=== PATIENT | male | born 1980 | race Hispanic/Latino ===

== ENCOUNTER 2020-07-10 10:42 | Emergency (ER) | payer BC, SELFPAY ==
--- NOTE | ~2020-07-10 | XR_ITS ---
EXAMINATION: XR chest 1V portable 07/10/2020 11:41 INDICATION: Cough. Covid Positive. PROCEDURE: AP portable chest COMPARISON: No prior studies for comparison. FINDINGS: The lungs are clear. The cardiomediastinal silhouette is within normal limits. There are no pleural effusions. There is no pneumothorax suspected. IMPRESSION: 1: NO ACUTE CARDIOPULMONARY DISEASE. Reviewed, dictated and finalized at location B. HING MACHINE OPERATOR
[2020-07-10 10:53] VITALS: BP 142/107; PULSE 96; RESP 20; TEMP 37.2; O2SAT 95
--- NOTE | 2020-07-10 11:33 | ED.URI ---
HPI - URI/Sore Throat General Chief Complaint: Upper Respiratory Infection Stated Complaint: covid +, doesn't know what to do Time Seen by Provider: 07/10/20 11:01 Source: patient Mode of arrival: ambulatory Limitations: no limitations History of Present Illness HPI Narrative: This is a 39-year-old male that presents emergency department after a positive Covid test. Reports he was told to come to the ED by his primary doctor. Reports his father is currently very sick with coronavirus which made him nervous. Reports he has had fever, cough, congestion, and rhinorrhea. Denies chest pain, shortness of breath, or lower extremity edema. Related Data Allergies Allergy/AdvReac Type Severity Reaction Status Date / Time No Known Allergies Allergy Unknown Unverified 10/23/15 00:28 Review of Systems Review of Systems: Narrative: CONSTITUTIONAL: Reports fever, chills ENT: Reports rhinorrhea, congestion CARDIOVASCULAR: Denies chest pain, or edema. RESPIRATORY: Reports cough. Denies dyspnea. All systems reviewed & are unremarkable except as noted in HPI and below PMFSH Past Medical History Medical History (Updated 07/10/20 @ 11:49 by Yodit Sandoval PA-C) No active medical problems Social History Social History (Updated 07/10/20 @ 11:38 by Yodit Sandoval PA-C) Smoking status: Current some day smoker Exam Narrative: Exam Narrative: GENERAL: Well-appearing, obese, and in no acute distress. HEAD: Normocephalic, atraumatic. EYES: EOMI. ENT: Nares clear, no rhinorrhea or epistaxis. Mucous membranes moist. Oropharynx without tonsillar hypertrophy exudate or other lesions. Bilateral TMs pearly smith non-bulging NECK: Supple. No adenopathy or masses. CHEST: Clear to auscultation. No respiratory distress. No wheezes rales or rhonchi HEART: Regular rate and rhythm. No murmur heard. Normal peripheral pulses. EXTREMITIES: Normal range of motion. No edema. SKIN: Warm, dry, no rash. NEURO: No focal deficits. Alert and oriented x3. PSYCH: Normal mood and affect Course Vital Signs Vital signs: Vital Signs Temperature 98.9 F 07/10/20 10:53 Pulse Rate 96 07/10/20 10:53 Respiratory Rate 20 07/10/20 10:53 Blood Pressure 142/107 H 07/10/20 10:53 Pulse Oximetry 95 07/10/20 10:53 Temperature 98.9 F 07/10/20 10:53 Pulse Rate 96 07/10/20 10:53 Respiratory Rate 20 07/10/20 10:53 Blood Pressure 142/107 H 07/10/20 10:53 Pulse Oximetry 95 07/10/20 10:53 MDM - URI/Sore Throat MDM Narrative Medical decision making narrative: Patient presents to the emergency department for positive Covid test. He is afebrile and nontoxic-appearing. Oxygen saturation has remained normal on room air. Denies any chest pain or shortness of breath. Chest x-ray is clear. Patient instructed on continued symptomatic care of viral infection. He is to follow-up with his primary care doctor. He was given warnings to return to the ER Imaging Data Radiologist's impression: ITS Impressions Chest X-Ray 07/10/20 11:42 IMPRESSION: 1: NO ACUTE CARDIOPULMONARY DISEASE. Critical Care Time Critical Care Time Critical Care Time: No Discharge Plan Discharge Clinical Impression: 2019 novel coronavirus detected Patient Disposition: Home, Self-Care Condition: Stable Instructions: COVID-19 (Coronavirus Disease 2019) (ED) Additional Instructions: Return to the emergency department for worsening symptoms, or any other concerns Remain well-hydrated, get plenty of rest. Take Tylenol or Motrin [id number] for pain as needed. Flonase for nasal congestion. Zyrtec for runny nose. Lozenges or Chloraseptic spray for sore throat. Albuterol as needed for shortness of breath. It is important that you remain self isolated Follow up with your primary care doctor Prescriptions: New albuterol sulfate 90 mcg/actuation aerosol powdr breath activated 2 inh inhalation Q4-6H PRN (Reason: shortness of ulices
[2020-07-10 11:45] VITALS: BP 142/96
[2020-07-10 12:25] VITALS: BP 143/92; PULSE 95; RESP 20; O2SAT 92
== END 2020-07-10 12:25 | disposition home or self-care (01) ==
PROVIDERS: Emergency Provider Emergency Medicine
DX: U07.1 COVID-19 (principal); F17.200 Nicotine dependence, unspecified, uncomplicated
CPT/HCPCS: 71045; 99283

== ENCOUNTER 2020-07-12 15:56 | Emergency (ER) | payer BC, SELFPAY ==
[2020-07-12] VITALS (16 sets, daily range): BP systolic 123–147; BP diastolic 79–95; PULSE 92–112; RESP 18–29; TEMP 37.8–38.2; O2SAT 94–97
--- NOTE | ~2020-07-12 | CT_ITS ---
EXAMINATION: CTA chest PE protocol DATE: 07/12/2020 20:23 INDICATION: Soreness of breath. Elevated d-dimer. TECHNIQUE: Computed tomography (CT) pulmonary angiogram of the chest was performed with 100 mL Omnipa que-350 intravenous contrast. Additional 3D reconstructions utilizing coronal maximum intensity proje ction (MIP) were performed. Automated exposure control and iterative reconstruction technique were em ployed. The dose-length product was 824.66 mGy-cm. COMPARISON: None FINDINGS: Excellent contrast opacification of the pulmonary arteries. There is mild streak artifact from dense contrast in the superior vena cava and right atrium. Mild scattered respiratory motion artifact which does not significantly limit evaluation. No pulmonary embolism. Multiple bilateral patchy groundglas s opacities throughout both lungs suspicious for COVID pneumonia. There are some linear discoid atele ctasis in the bilateral lower lobes and lingula. No septal line thickening to suggest pulmonary edema . No pleural effusion. Heart size is normal. No pericardial effusion. Thoracic aorta is normal in micah iber with no dissection. Bilateral hilar and mediastinal lymphadenopathy which is likely reactive. Vi sualized upper abdomen is unremarkable. Chronic T12 compression fracture with 20% anterior vertebral body height loss. IMPRESSION: 1. No pulmonary embolism. 2. Multiple patchy bilateral groundglass opacities suspicious for COVID pneumonia. Differential would include pulmonary edema, hypersensitivity pneumonitis and eosinophilic pneumonia. 3. Likely reactive mild mediastinal and bilateral hilar lymphadenopathy. Reviewed, dictated and finalized at location A. ICE TECH IMPRESSION: 1. No pulmonary embolism. 2. Multiple patchy bilateral groundglass opacities suspicious for COVID pneumon ia. Differential would include pulmonary edema, hypersensitivity pneumonitis an d eosinophilic pneumonia. 3. Likely reactive mild mediastinal and bilateral hilar lymphadenopathy.
--- NOTE | ~2020-07-12 | XR_ITS ---
EXAMINATION: XR chest 1V portable DATE: 07/12/2020 16:48 INDICATION: COVID positive. Cough and shortness of breath. TECHNIQUE: frontal view of the chest was obtained. COMPARISON: Chest radiograph dated 07/10/2020 FINDINGS: Bandlike opacity left lower lung zone which would favor atelectasis over pneumonia. No pulmonary oli a, pleural effusion or pneumothorax. The cardiomediastinal silhouette is normal. IMPRESSION: 1. Bandlike opacity left lower lung zone and would favor atelectasis over pneumonia. Reviewed, dictated and finalized at location A. 3D ARTIST IMPRESSION: 1. Bandlike opacity left lower lung zone and would favor atelectasis over pneum onia.
--- NOTE | 2020-07-12 16:31 | ED.GENADULT ---
HPI - General Adult General Chief complaint: Unspecified Stated complaint: COVID + wanting to make sure i am not SOB Time Seen by Provider: 07/12/20 16:00 Source: patient Mode of arrival: ambulatory Limitations: no limitations History of Present Illness HPI narrative: Patient 39-year-old male complaining of cough, fever, body aches and difficult day when he takes a deep breath but he is not short of breath, started approximately 4 days ago was diagnosed with Covid 3 days ago. Patient denies any chest pain abdominal pain, nausea, vomiting, diarrhea or rash. Related Data Allergies Allergy/AdvReac Type Severity Reaction Status Date / Time No Known Allergies Allergy Unknown Verified 07/12/20 16:05 Review of Systems Review of Systems: All systems reviewed & are unremarkable except as noted in HPI and below Constitutional: Constitutional: Denies body ache(s), Denies excessive sweating, Denies headache(s), Denies lethargy, Denies weakness and Denies weight loss Eyes: Eyes: Denies blurry vision, Denies change in vision and Denies loss of vision ENT: Denies dizziness, Denies ear discharge, Denies headache(s), Denies lip swelling, Denies epistaxis, Denies nasal congestion, Denies neck pain, Denies throat swelling and Denies tongue swelling Cardiovascular: Cardiovascular: Denies chest pain, Denies chest pain at rest, Denies chest pain with activity, Denies diaphoresis, Denies rapid heart rate, Denies edema, Denies irregular heart rhythm, Denies lightheadedness, Denies palpitations, Denies dyspnea and Denies dyspnea on exertion Respiratory: Respiratory: Denies chest congestion, Denies hemoptysis, Denies dyspnea and Denies dyspnea on exertion Gastrointestinal: Gastrointestinal: Denies abdominal pain, Denies melena, Denies hematochezia, Denies diarrhea, Denies nausea, Denies vomiting and Denies hematemesis Musculoskeletal: Musculoskeletal: Denies abnormal gait, Denies deformity, Denies joint swelling, Denies limited range of motion, Denies neck pain and Denies numbness Neurologic: Denies Abnormal speech present, Denies abnormal gait, Denies confusion, Denies dizziness, Denies headache(s), Denies focal weakness, Denies loss of vision, Denies numbness, Denies Other visual disturbances, Denies Sensory deficit (Neuro) and Denies weakness Psychiatric: Psychiatric: Denies confusion, Denies depression, Denies auditory hallucinations, Denies homicidal ideation and Denies suicidal ideation Endocrine: Endocrine: Denies cold intolerance, Denies excessive sweating, Denies fatigue, Denies heat intolerance and Denies palpitations Hematologic/Lymphatic: Hematologic/Lymphatic: Denies easy bleeding and Denies easy bruising Allergic/Immunologic: Allergic/Immunologic: Denies lip swelling, Denies throat swelling and Denies tongue swelling [facility] Past Medical History Medical History (Updated 07/12/20 @ 21:05 by Henry Campuzano MD) No active medical problems Social History Social History (Updated 07/10/20 @ 11:38 by ZEE CashC) Smoking status: Current some day smoker Exam Const: General: cooperative, healthy appearing, comfortable, no acute distress, well developed, alert and awake; No confusion Orientation/consciousness: oriented to person, oriented to place, oriented to time, patient oriented x3 and No confusion Limitations: no limitations HENMT: Head: normal to inspection, normocephalic and atraumatic Ears: hearing grossly normal bilaterally, TM normal on the right and TM normal on the left General nose exam: Normal external nose present, Normal nares present and No nasal discharge present Face and sinus: normal facial exam Mouth: Yes Normal oral and palatal mucosa present, Yes lip normal, Yes tongue normal and Yes oropharynx normal Throat: posterior oropharynx normal, tonsils normal and uvula midline Eyes: General: appearance normal, both eyes and all related structures Pupils: Equal, round and reactive pupils present EOM: EOMs in
[2020-07-12] MEDS: ACETAMINOPHEN 325 MG TABLET 650 MG PO (16:46)
[2020-07-12 17:12] LABS: Basophils Percent Auto 0.2 % (0.2-1.2); Hematocrit 46.3 % (42.0-52.0); Hemoglobin 15.8 g/dL (14.0-18.0); Immature Granulocyte Absolute 0.02 K/mm3 (0.00-0.031); Immature Granulocyte Percent A 0.3 % (0-0.5); Lymphocytes Absolute Auto 1.38 K/mm3 (0.9-3.2); Lymphocytes Percent Auto 21.1 % (18.3-44.2); Mean Corpuscular HGB Conc 34.1 g/dl (32-36); Mean Corpuscular Hemoglobin 30.5 pg (26-34); Mean Corpuscular Volume 89.4 fl (80-100); Mean Platelet Volume 9.9 fl (7.4-10.4); Monocytes Absolute Auto 0.2 K/mm3 (0.1-0.6); Monocytes Percent Auto 2.5 % (2.6-8.5); Neutrophils Percent Auto 75.9 % (45.5-73.1); Platelet Count Result 169 k/mm3 (150-375); Red Blood Count 5.18 M/mm3 (4.6-6.20); Red Cell Distribution Width 13.1 % (11.5-14.5); White Blood Count 6.5 K/mm3 (4.5-10.0)
[2020-07-12 17:23] LABS: Lactic Acid Reflex 0.7 mmol/L (0.7-2.1)
[2020-07-12 17:24] LABS: Alanine Aminotransferase 187 U/L (4-50); Albumin Level 3.9 g/dL (3.5-5.1); Alkaline Phosphatase 74 U/L (38-126); Anion Gap 6 mmol/L (8-16); Aspartate Amino Transferase 172 U/L (17-59); Bilirubin,Total 0.4 mg/dL (0.2-1.3); Blood Urea Nitrogen 5 mg/dL (9-20); Calcium 8.3 mg/dL (8.4-10.2); Carbon Dioxide 27 mmol/L (22-30); Chloride 100 mmol/L (98-107); Estimated CRCL calculation 150 ml/min; Estimated Glomerular Filt Rate > 60; Glucose 126 mg/dL (75-110); Potassium 3.8 mmol/L (3.4-5.0); Sodium 133 mmol/L (137-145)
[2020-07-12 17:31] LABS: Prothrombin Time 13.7 Seconds (11.1-14.7)
[2020-07-12 17:32] LABS: Partial Thromboplastin Time 39.8 SECONDS (22.3-36.8)
[2020-07-12 17:34] LABS: D Dimer 0.56 ug/mL (<0.48)
== END 2020-07-12 22:01 | disposition home or self-care (01) ==
PROVIDERS: Emergency Provider Emergency Medicine
DX: U07.1 COVID-19 (principal); J12.89 Other viral pneumonia; F17.200 Nicotine dependence, unspecified, uncomplicated
CPT/HCPCS: 36415; 71045; 71275; 80053; 83605; 85025; 85380; 85610; 85730; 87040; 99284; A9270; Q9967

== ENCOUNTER 2020-07-15 12:19 | Inpatient (IN) | payer BC, SELFPAY ==
[2020-07-15] VITALS (52 sets, daily range): BP systolic 110–149; BP diastolic 64–94; PULSE 80–112; RESP 0–48; TEMP 36.4–38.3; O2SAT 85–99; BMI 42.4
--- NOTE | ~2020-07-15 | CT_ITS ---
EXAMINATION:CT chest wo con DATE: 07/15/2020 13:44 INDICATION: Shortness of breath. TECHNIQUE: Computed tomography (CT) of the chest was performed without intravenous contrast. Automate d exposure control and iterative reconstruction technique were employed. The dose-length product (DLP ) was 523.83 mGy-cm. COMPARISON: Chest CT 07/12/2020 FINDINGS: There are groundglass opacities in all lobes. No pleural effusion. The heart size is normal . No pericardial effusion. A calcified mediastinal lymph node is consistent with old granulomatous di sease. There is mild mediastinal lymphadenopathy, likely reactive. There is mild thoracic spondylosis . There is mild chronic anterior wedging of T11 and T12 vertebral bodies. IMPRESSION: 1. Worsened diffuse lung disease, consistent with COVID-19 pneumonia. Reviewed, dictated and finalized at location B. OLOGY RESEARCH ASSISTANT
--- NOTE | ~2020-07-15 | XR_ITS ---
EXAMINATION: XR chest 1V portable DATE: 07/19/2020 05:59 INDICATION: COVID TECHNIQUE: frontal view of the chest was obtained. COMPARISON: Chest radiograph dated 07/17/2020 FINDINGS: There is been some improvement in the bilateral patchy and streaky airspace opacities in the bilatera l mid and lower lung zones. No pleural effusion or pneumothorax. The cardiomediastinal silhouette is normal. IMPRESSION: 1. Slight improvement in bilateral patchy airspace opacities consistent with improving pneumonia. Reviewed, dictated and finalized at location A. TS PSYCHOLOGIST IMPRESSION: 1. Slight improvement in bilateral patchy airspace opacities consistent with im proving pneumonia.
--- NOTE | ~2020-07-15 | XR_ITS ---
EXAMINATION: XR chest 1V portable DATE: 07/17/2020 05:42 INDICATION: COVID TECHNIQUE: frontal view of the chest was obtained. COMPARISON: Chest radiograph dated 07/12/[address] dated 07/15/2020 FINDINGS: Increase in bilateral patchy airspace opacities throughout bilateral mid and lower lung zones. No ple ural effusion or pneumothorax. The cardiomediastinal silhouette is normal. IMPRESSION: 1. Increasing bilateral patchy airspace opacities consistent with worsening pneumonia. Reviewed, dictated and finalized at location A. RVENTION ANALYST IMPRESSION: 1. Increasing bilateral patchy airspace opacities consistent with worsening pne umonia.
--- NOTE | 2020-07-15 12:22 | ECG_ITS ---
Measurements Intervals [place] Rate: 102 P: 3 ND: 145 QRS: 227 QRSD: 130 T: 17 QT: 354 QTc: 462 Interpretive Statements ATRIAL SENSE- ELECTRONIC VENTRICULAR PACEMAKER UNDERLYING SINUS TACHYCARDIA NO FURTHER INTERPRETATION IS POSSIBLE BORDERLINE ECG Electronically Signed On 07-15-2020 12:32:16 DIRECTOR AGENCY & STRATEGIC PARTNERSHIPS by Daniel Davis D.O.
--- NOTE | 2020-07-15 12:38 | ED.SOB ---
HPI - SOB/Dyspnea General Chief Complaint: Shortness of Breath/Dyspnea Stated Complaint: cough, losing my breath Time Seen by Provider: 07/15/20 12:23 Source: patient Mode of arrival: ambulatory Limitations: no limitations History of Present Illness HPI Narrative: Patient is a 39-year-old male complaining of shortness of breath that started 1 week ago and was seen here few days ago, had labs and a CTA of his chest that showed positive for Covid pneumonia. I saw and examined the patient when he was here few days ago his oxygen sat was in the 96-98 percentile on room air, was discharged home on precautions and was advised that if his oxygen goes down and becomes more short of breath return to the emergency room. Patient states that his oxygen was low and he is even more short of breath that is why he came in. Patient also complaining of fever. Patient denies any chest pain abdominal pain, nausea, vomiting, diarrhea or rash. Related Data Allergies Allergy/AdvReac Type Severity Reaction Status Date / Time No Known Allergies Allergy Unknown Verified 07/12/20 16:05 Review of Systems Review of Systems: All systems reviewed & are unremarkable except as noted in HPI and below Constitutional: Constitutional: Denies body ache(s), Denies excessive sweating, Denies headache(s), Denies lethargy, Denies weakness and Denies weight loss Eyes: Eyes: Denies blurry vision, Denies change in vision and Denies loss of vision ENT: Denies dizziness, Denies ear discharge, Denies headache(s), Denies lip swelling, Denies epistaxis, Denies nasal congestion, Denies neck pain, Denies throat swelling and Denies tongue swelling Cardiovascular: Cardiovascular: Denies chest pain, Denies chest pain at rest, Denies chest pain with activity, Denies diaphoresis, Denies rapid heart rate, Denies edema, Denies irregular heart rhythm, Denies lightheadedness and Denies palpitations Gastrointestinal: Gastrointestinal: Denies abdominal pain, Denies melena, Denies hematochezia, Denies diarrhea, Denies nausea, Denies vomiting and Denies hematemesis Musculoskeletal: Musculoskeletal: Denies abnormal gait, Denies deformity, Denies joint swelling, Denies limited range of motion, Denies neck pain and Denies numbness Neurologic: Denies Abnormal speech present, Denies abnormal gait, Denies confusion, Denies dizziness, Denies headache(s), Denies focal weakness, Denies loss of vision, Denies numbness, Denies Other visual disturbances, Denies Sensory deficit (Neuro) and Denies weakness Psychiatric: Psychiatric: Denies confusion, Denies depression, Denies auditory hallucinations, Denies homicidal ideation and Denies suicidal ideation Endocrine: Endocrine: Denies cold intolerance, Denies excessive sweating, Denies fatigue, Denies heat intolerance and Denies palpitations Hematologic/Lymphatic: Hematologic/Lymphatic: Denies easy bleeding and Denies easy bruising Allergic/Immunologic: Allergic/Immunologic: Denies lip swelling, Denies throat swelling and Denies tongue swelling PMFSH Past Medical History Medical History (Updated 07/15/20 @ 15:41 by Henry Campuzano MD) No active medical problems Social History Social History (Updated 07/10/20 @ 11:38 by Yodit Sandoval PA-C) Smoking status: Current some day smoker Gender identity (if verbalized by the patient): Male Exam Const: General: cooperative, healthy appearing, comfortable, well developed, alert and awake; No confusion Orientation/consciousness: oriented to person, oriented to place, oriented to time, patient oriented x3 and No confusion Limitations: no limitations HENMT: Head: normal to inspection, normocephalic and atraumatic Ears: hearing grossly normal bilaterally, TM normal on the right and TM normal on the left General nose exam: Normal external nose present, Normal nares present and No nasal discharge present Face and sinus: normal facial exam Mouth: Yes Normal oral and palatal mucosa present, Yes lip normal, Ye
--- NOTE | 2020-07-15 13:04 | PC.NURSE ---
Camryn RN to bedside to place larger SL. patient resting. on 2L NC O2. looks comfortable. patient states his 35 year-old sister in March due to Covid complications and his father last week from same. patient anxious.
[2020-07-15] MEDS: IPRATROPIUM BR 0.02% INH SOLN 0.5 MG/2.5 ML VIAL INHALATION (13:07)
[2020-07-15] MEDS: ALBUTEROL SULFATE NEB 2.5 MG/0.5 ML INH 5 MG INHALATION (13:07)
[2020-07-15 13:08] LABS: Basophils Percent Auto 0.2 % (0.2-1.2); Hematocrit 43.3 % (42.0-52.0); Hemoglobin 14.5 g/dL (14.0-18.0); Immature Granulocyte Absolute 0.06 K/mm3 (0.00-0.031); Immature Granulocyte Percent A 0.7 % (0-0.5); Lymphocytes Absolute Auto 1.16 K/mm3 (0.9-3.2); Lymphocytes Percent Auto 12.7 % (18.3-44.2); Mean Corpuscular HGB Conc 33.5 g/dl (32-36); Mean Corpuscular Hemoglobin 29.8 pg (26-34); Mean Corpuscular Volume 88.9 fl (80-100); Mean Platelet Volume 9.4 fl (7.4-10.4); Monocytes Absolute Auto 0.5 K/mm3 (0.1-0.6); Monocytes Percent Auto 5.2 % (2.6-8.5); Neutrophils Absolute Auto 7.4 K/mm3 (1.3-6.7); Neutrophils Percent Auto 81.2 % (45.5-73.1); Platelet Count Result 281 k/mm3 (150-375); Red Blood Count 4.87 M/mm3 (4.6-6.20); Red Cell Distribution Width 13.3 % (11.5-14.5); White Blood Count 9.2 K/mm3 (4.5-10.0)
--- NOTE | 2020-07-15 13:15 | PC.NURSE ---
green top rejected, Journeyman Operator Assistant Lori Hawk notified
[2020-07-15 13:19] LABS: Alveolar/Arterial O2 Gradient 101.2 mmHg; Base Excess ABG -0.3 mEq/l (+/-2.0); Carboxyhemoglobin 0.8 % THb (0-2.0); Device NASAL CANNULA; Fractional Inspired Oxygen 28 %; HCO3 ABG 22.3 mEq/l (22.0-26.0); Methemoglobin ABG 0.2 %THb (0-1.5); Modified Allen's Test Pass; Oxygen Content ABG 19.3 %vol (16.0-22.0); Oxygen Saturation ABG 93.2 % (95.0-100.0); Oxyhemoglobin 91.8 % THb (90.0-100.0); PCO2 ABG 31.4 mmHg (35.0-45.0); PO2 ABG 61.4 mmHg (80.0-100.0); PO2 FiO2 Ratio Arterial Blood 2.19 %; Reduced Hemoglobin 7.2 %THb (0-5.0); Site Drawn RIGHT RADIAL
--- NOTE | 2020-07-15 13:19 | PC.NURSE ---
resting on stretcher. breathing treatment started. on school bus monitor. alert. call light in reach.
[2020-07-15 15:35] LABS: Anion Gap 8 mmol/L (8-16); Blood Urea Nitrogen 7 mg/dL (9-20); Calcium 8.2 mg/dL (8.4-10.2); Carbon Dioxide 28 mmol/L (22-30); Chloride 99 mmol/L (98-107); Estimated CRCL calculation 133 ml/min; Estimated Glomerular Filt Rate > 60; Glucose 122 mg/dL (75-110); Potassium 3.6 mmol/L (3.4-5.0); Sodium 135 mmol/L (137-145)
--- NOTE | 2020-07-15 16:30 | PC.NURSE ---
patient being admitted for treatment. waiting for bed assignment.
[2020-07-15] MEDS: ACETAMINOPHEN 325 MG TABLET 650 MG PO (17:32)
--- NOTE | 2020-07-15 17:45 | PC.NURSE ---
tylenol given. patient concerned that he has had diarrhea. very concerned for his diagnosis after loss of family members to Covid complications. on 3L NC right now. sprite given. no other requests at this time per patient. on cardiac rehab nurse. alert. oriented.
--- NOTE | 2020-07-15 19:27 | PC.NURSE ---
resting on stretcher. no beds available upstairs. will be boarding in the ED.
--- NOTE | 2020-07-15 21:28 | PC.NURSE ---
attempted to call report. RN just received a new patient in .
--- NOTE | 2020-07-15 21:40 | PC.NURSE ---
additional orders received. will give patient dose of remdesivir and cough medication.
[2020-07-15] MEDS: ACETAMINOPHEN 325 MG TABLET 650 MG (21:54)
[2020-07-15] MEDS: guaiFENesin/CODEINE (*CRX) 200/20 MG 10 ML SYRUP (21:54)
--- NOTE | 2020-07-15 22:10 | PC.NURSE ---
spoke with Eleanor in IMU. RN states she is busy and not available. Frances sykes RN aware. waiting for lab to draw blood work prior to giving 1st dose of remedisivir.
--- NOTE | 2020-07-15 22:12 | PM.IMHP ---
H&P: HPI History of Present Illness Date/Time: 07/15/20 22:12 Chief complaint: Acute Resp Failure Narrative: Primo Neff is a 39 year old male who has a whole family has had COVID. His sister at the age of 35 due to COVID and his father just at the age of 59. His father was here and transferred to [facility] recently . The patient tested positive a Elva Barry approximately 4 days ago. The patient stated that he had symptoms about a week ago. He still having fevers over 102. In the emergency room on the and had a cough and a fever and explained that he tested positive for COVID on the 09 of July. Patient was discharged back to home on the and now returns due to the shortness of breath. Patient is very anxious as his family members have from COVID. To 90 and 91% the patient was started on oxygen at 4 L now 94%. To 98%. As worsened diffuse lung disease consistent COVID-19 pneumonia. He was also given Tylenol in the emergency room. Patient is being admitted to inpatient status on the date of service of 07/15/2020. Review of Systems Review of Systems: All systems reviewed & are unremarkable except as noted in HPI and below Constitutional: Constitutional: Reports as per HPI and Reports no additional constitutional complaints Eyes: Eyes: Reports as per HPI and Reports no additional eye complaints ENT: Reports system reviewed and no additional complaints, except as documented and Reports Normal hearing present Cardiovascular: Cardiovascular: Reports no additional cardiovascular complaints Respiratory: Respiratory: Reports no additional respiratory complaints and Reports no additional respiratory complaints Gastrointestinal: Gastrointestinal: Reports as per HPI and Reports no additional gastrointestinal complaints Musculoskeletal: Musculoskeletal: Reports no additional musculoskeletal complaints Integumentary/Breasts: Skin/Breast: Reports system reviewed and no additional complaints, except as docu and Reports as per HPI Neurologic: Reports system reviewed and no additional complaints, except as documented, Reports as per HPI and Reports Normal hearing present Psychiatric: Psychiatric: Reports no additional psychiatric complaints and Reports as per HPI Endocrine: Endocrine: Reports no additional endocrine complaints Hematologic/Lymphatic: Hematologic/Lymphatic: Reports no additional hematologic/lymphatic complaints Allergic/Immunologic: Allergic/Immunologic: Reports no additional allergic/immunologic complaints [facility] Past Medical History Medical History (Updated 07/15/20 @ 15:41 by Henry Campuzano MD) No active medical problems Surgical History Surgical History (Updated 07/15/20 @ 22:17 by Yenny Ba NP) No pertinent past surgical history Family History Family History (Updated 07/15/20 @ 22:18 by Yenny Ba NP) Father Diabetes mellitus COVID-19 He due to COVID-19 a day to 59 Sibling COVID-19 at the age of 35 due to COVID-19 and she had obesity. Social History Social History (Updated 07/15/20 @ 22:19 by Yenny Ba NP) Social History: The patient is and has 4 children. The patient smoked until just right before the end of last month. He said he did smoke all the time he just socially smoked in socially drink. No marijuana or illicit drugs. 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 Patient does needs his to be durable power deputy attorney general for healthcare. The patient desires to be a full code. Smoking status: Current some day smoker Gender identity (if verbalized by the patient): Male Meds Home Medications and Allergies Home Medications Medication Instructions Recorded Confirmed Type albuterol sulfate [ProAir INHALATION 07/15/20 History RespiClick] Allergies Allergy/AdvReac Type Severity Reaction Status Date / Time No Known Allergies Aller
[2020-07-15 22:28] LABS: Alanine Aminotransferase 184 U/L (4-50)
--- NOTE | 2020-07-15 22:33 | PC.NURSE ---
report given to Heather JUAREZ in IMU. patient transferred to room 212 by behavioral health tech and stretcher. patient on cardiac/vascular sonographer. all belongings sent with patient including cell phone and gear hobber.
[2020-07-15] MEDS: REMDESIVIR 200 MG/NS 250 ML 200 MG/250 ML BAG 250 MG IVPB (23:27)
[2020-07-16] VITALS (21 sets, daily range): BP systolic 124–143; BP diastolic 56–76; PULSE 77–104; RESP 20–24; TEMP 35.7–36.4; O2SAT 94–98
--- NOTE | 2020-07-16 00:18 | ADMGEN ---
This patient, Primo Neff, was admitted to IMU Room 212-01. Patient/family oriented to hospital policies and general routines including ID bracelet, bed and alarms, visiting hours, pain management, procedures, bathroom and other care routines, personal items, smoking policy, room service/diet, and visiting hours. Information on how to activate the Rapid Response Team has been discussed. Patient/Family are encouraged to report perceived risks to care and to ask questions if they do not understand what they are told or what they should do.
[2020-07-16] MEDS: ALBUTEROL SULFATE (*SP) AEROSOL 1 PUFF 2 PUFF INHALATION ×4 (02:08→20:56)
[2020-07-16 04:08] LABS: Basophils Percent Auto 0.2 % (0.2-1.2); Hemoglobin 13.7 g/dL (14.0-18.0); Immature Granulocyte Absolute 0.05 K/mm3 (0.00-0.031); Immature Granulocyte Percent A 0.8 % (0-0.5); Lymphocytes Absolute Auto 1.73 K/mm3 (0.9-3.2); Lymphocytes Percent Auto 27.2 % (18.3-44.2); Mean Corpuscular HGB Conc 33.4 g/dl (32-36); Mean Corpuscular Hemoglobin 29.9 pg (26-34); Mean Corpuscular Volume 89.5 fl (80-100); Mean Platelet Volume 9.4 fl (7.4-10.4); Monocytes Absolute Auto 0.4 K/mm3 (0.1-0.6); Neutrophils Absolute Auto 4.2 K/mm3 (1.3-6.7); Neutrophils Percent Auto 65.8 % (45.5-73.1); Platelet Count Result 308 k/mm3 (150-375); Red Blood Count 4.58 M/mm3 (4.6-6.20); Red Cell Distribution Width 13.5 % (11.5-14.5); White Blood Count 6.4 K/mm3 (4.5-10.0)
[2020-07-16 04:28] LABS: Alanine Aminotransferase 166 U/L (4-50); Albumin Level 3.4 g/dL (3.5-5.1); Alkaline Phosphatase 77 U/L (38-126); Anion Gap 4 mmol/L (8-16); Aspartate Amino Transferase 135 U/L (17-59); Bilirubin,Total 0.4 mg/dL (0.2-1.3); Blood Urea Nitrogen 9 mg/dL (9-20); Carbon Dioxide 31 mmol/L (22-30); Chloride 102 mmol/L (98-107); Estimated CRCL calculation 153 ml/min; Estimated Glomerular Filt Rate > 60; Glucose 127 mg/dL (75-110); Lactate Dehydrogenase 1449 U/L (313-618); Magnesium 2.4 mg/dL (1.6-2.3); Potassium 3.4 mmol/L (3.4-5.0); Sodium 137 mmol/L (137-145)
[2020-07-16 05:14] LABS: Atypical Lymphocytes Present; Platelet Estimate Adequate (Adequate)
[2020-07-16 06:44] LABS: Ferritin > 2000.00 ng/mL (17.9-464)
[2020-07-16] MEDS: ENOXAPARIN 40 MG/0.4 ML SYRINGE SUB-Q ×2 (09:30→20:56)
[2020-07-16] MEDS: DEXAMETHASONE SOD PHOS INJ 4 MG/ML VIAL 6 MG IV PUSH (09:33)
--- NOTE | 2020-07-16 14:04 | PM.IMPN ---
Progress Note: A&P Assessment and Plan (1) Acute hypoxemic respiratory failure: Code(s): J96.01 - Acute respiratory failure with hypoxia Status: Acute Assessment and Plan: ABG showing pH 7.47/31/[address] showing ground-glass opacities in all lobes. Continue supplemental oxygen. Wean oxygen as tolerated. Continue monitor closely in the IMU. (2) Pneumonia due to 2019 novel coronavirus: Code(s): U07.1 - COVID-19; J12.89 - Other viral pneumonia Status: Acute Assessment and Plan: Patient tested positive for COVID 07/09 and had been symptomatic for about 3 days prior to testing. He has been placed in isolation. Remdesivir and Decadron have been started. The patient is on 3 L per nasal cannula. Continue inhalers and prn cough medicine. Tylenol available for the fever. Continue to monitor his liver enzymes daily. (3) History of tobacco use: Code(s): Z87.891 - Personal history of nicotine dependence Status: Acute Assessment and Plan: Patient has history of tobacco use and quit last month. (4) DVT prophylaxis: Code(s): Z29.9 - Encounter for prophylactic measures, unspecified Status: Acute Assessment and Plan: Lovenox Subjective Date/time seen: 07/16/20 14:04 Interval history: Date of service 07/16/2020 39yo male with history of tobacco use here for respiratory failure from COVID. Patient states his cough is better. Cough is dry and nonproductive. No chest pain. Still has shortness of breath at rest and with activity. Overall he feels better. Exam Narrative: Exam Narrative: Tm 101 96.7 133/65 104 24 98% 3L Gen - NARD sitting up in bed Chest - CTA bilaterally, nml RR CV - RRR S1/S2; Tele showing no significant dysrhythmias Abd - Soft, NT/ND, Positive BS Ext - No pedal edema Neuro - Alert and oriented. Nonfocal exam. Psych - Nml mood and affect Skin - Warm and dry Objective Data Vital Signs Vital Signs: Vital Signs - 24 hr 07/15/20 14:05 07/15/20 14:15 07/15/20 14:42 Temperature Pulse Rate 106 H 105 H 104 H Respiratory Rate 34 H 28 H 31 H Blood Pressure Pulse Oximetry 90 91 91 07/15/20 14:45 12/08/20 15:00 07/15/20 15:22 Temperature Pulse Rate 100 105 H 96 Respiratory Rate 29 H 43 H 25 H Blood Pressure Pulse Oximetry 92 95 07/15/20 15:37 07/15/20 16:30 07/15/20 16:31 Temperature Pulse Rate 95 102 H 99 Respiratory Rate 33 H 30 H 32 H Blood Pressure 147/68 H Pulse Oximetry 95 95 94 07/15/20 16:32 07/15/20 16:50 07/15/20 17:00 Temperature Pulse Rate 99 107 H 97 Respiratory Rate 28 H 34 H 40 H Blood Pressure Pulse Oximetry 94 95 96 07/15/20 17:01 07/15/20 17:25 07/15/20 17:30 Temperature Pulse Rate 93 105 H 96 Respiratory Rate 24 H 38 H 35 H Blood Pressure 110/91 H Pulse Oximetry 96 91 94 07/15/20 17:31 07/15/20 17:45 07/15/20 18:00 Temperature Pulse Rate 98 98 94 Respiratory Rate 28 H 33 H 36 H Blood Pressure 134/75 Pulse Oximetry 95 96 96 07/15/20 18:01 07/15/20 18:15 07/15/20 18:30 Temperature Pulse Rate 97 93 98 Respiratory Rate 29 H 24 H 22 H Blood Pressure 125/64 125/70 Pulse Oximetry 97 95 98 07/15/20 18:31 07/15/20 18:45 07/15/20 19:06 Temperature Pulse Rate 94 86 83 Respiratory Rate 28 H 18 0 L Blood Pressure Pulse Oximetry 97 96 96 07/15/20 19:15 07/15/20 19:49 07/15/20 20:05 Temperature Pulse Rate 80 83 86 Respiratory Rate 29 H 28 H 37 H Blood Pressure Pulse Oximetry 95 96 94 07/15/20 20:15 07/15/20 20:34 07/15/20 20:47 Temperature Pulse Rate 97 90 89 Respiratory Rate 27 H 33 H 34 H Blood Pressure Pulse Oximetry 95 95 96 07/15/20 21:00 07/15/20 21:07 07/15/20 21:15 Temperature Pulse Rate 92 88 92 Respiratory Rate 33 H 30 H 22 H Blood Pressure 125/71 Pulse Oximetry 97 96 96 07/15/20 21:30 07/15/20 21:31 07/15/20 21:45 Temperature Pulse Rate 93 95 87 Resp
[2020-07-16] MEDS: REMDESIVIR 100 MG/NS 250 ML 100 MG/250 ML BAG 250 MG IVPB (21:00)
[2020-07-17] VITALS (12 sets, daily range): BP systolic 122–141; BP diastolic 55–86; PULSE 62–92; RESP 12–22; TEMP 36.3–36.8; O2SAT 88–97
[2020-07-17] MEDS: ALBUTEROL SULFATE (*SP) AEROSOL 1 PUFF 2 PUFF INHALATION ×3 (02:01→14:05)
[2020-07-17 05:52] LABS: Alanine Aminotransferase 260 U/L (4-50); Albumin Level 3.5 g/dL (3.5-5.1); Alkaline Phosphatase 98 U/L (38-126); Anion Gap 6 mmol/L (8-16); Aspartate Amino Transferase 233 U/L (17-59); Bilirubin,Total 0.4 mg/dL (0.2-1.3); Blood Urea Nitrogen 12 mg/dL (9-20); CRP 8.8 mg/dL (<1.0); Calcium 8.5 mg/dL (8.4-10.2); Carbon Dioxide 29 mmol/L (22-30); Chloride 102 mmol/L (98-107); Estimated CRCL calculation 168 ml/min; Estimated Glomerular Filt Rate > 60; Glucose 127 mg/dL (75-110); Lactate Dehydrogenase 1792 U/L (313-618); Potassium 3.8 mmol/L (3.4-5.0); Sodium 137 mmol/L (137-145)
[2020-07-17 07:36] LABS: Ferritin > 2000.00 ng/mL (17.9-464)
[2020-07-17] MEDS: ENOXAPARIN 40 MG/0.4 ML SYRINGE SUB-Q ×2 (08:58→20:53)
[2020-07-17] MEDS: DEXAMETHASONE SOD PHOS INJ 4 MG/ML VIAL 6 MG IV PUSH (08:58)
--- NOTE | 2020-07-17 13:10 | PM.IMPN ---
Progress Note: A&P Assessment and Plan (1) Acute hypoxemic respiratory failure: Code(s): J96.01 - Acute respiratory failure with hypoxia Status: Acute Assessment and Plan: ABG showing pH 7.47/31/[address] showing ground-glass opacities in all lobes. Currently down to 1L. Continue supplemental oxygen. Wean oxygen as tolerated. (2) Pneumonia due to 2019 novel coronavirus: Code(s): U07.1 - COVID-19; J12.89 - Other viral pneumonia Status: Acute Assessment and Plan: Patient tested positive for COVID on 07/09/20 and had been symptomatic for about 3 days prior to testing. He was placed in isolation. Remdesivir and Decadron were started. The patient is down to 1 L per nasal cannula. Ferritin still >2000 and LDH higher at 1792. ALT higher today at 260 so will hold Remdesivir today. Continue inhalers and prn cough medicine. Stop Tylenol. Continue to monitor his liver enzymes daily. (3) Elevated LFTs: Code(s): R79.89 - Other specified abnormal findings of blood chemistry Status: Acute Assessment and Plan: AST and ALT trending down yesterday but worse today for unclear reasons. Possibly related to the Remdesivir. Will hold and continue to follow. (4) GERD (gastroesophageal reflux disease): Code(s): K21.9 - Gastro-esophageal reflux disease without esophagitis Status: Acute Assessment and Plan: Was inhibiting his ability to sleep last night. Will add Protonix at bedtime. (5) History of tobacco use: Code(s): Z87.891 - Personal history of nicotine dependence Status: Acute Assessment and Plan: Patient has history of tobacco use and quit last month. (6) DVT prophylaxis: Code(s): Z29.9 - Encounter for prophylactic measures, unspecified Status: Acute Assessment and Plan: Lovenox Subjective Date/time seen: 07/17/20 13:10 Interval history: Date of service 07/17 39yo male with history of tobacco use here for respiratory failure from COVID. No CP. SOB better. Slept poorly. Diarrhea better as well. Having GERD symptoms that is keeping him up at night. Exam Narrative: Exam Narrative: AF 98.2 141/8075 22 96% 1L Gen - NARD lying almost flat in bed Chest - few inspiratory crackles, nml RR CV - RRR S1/S2 Abd - Soft, NT/ND, Positive BS Ext - No pedal edema Psych - anxious Skin - Warm and dry Objective Data Vital Signs Vital Signs: Vital Signs - 24 hr 07/16/20 13:22 07/16/20 14:00 07/16/20 15:00 Temperature 96.7 F L Pulse Rate 104 H 96 84 Respiratory Rate 24 H 20 Blood Pressure 133/65 Pulse Oximetry 98 07/16/20 15:10 07/16/20 16:00 07/16/20 17:11 Temperature 97.5 F L Pulse Rate 88 85 91 Respiratory Rate 20 20 Blood Pressure 143/73 H Pulse Oximetry 97 96 07/16/20 18:00 07/16/20 20:00 07/16/20 22:00 Temperature 97.4 F L Pulse Rate 87 95 77 Respiratory Rate 20 Blood Pressure 133/76 Pulse Oximetry 94 07/17/20 00:00 07/17/20 02:00 07/17/20 04:00 Temperature 97.9 F 98.0 F Pulse Rate 70 77 77 Respiratory Rate 20 20 Blood Pressure 135/68 136/86 Pulse Oximetry 97 95 07/17/20 06:00 07/17/20 08:00 07/17/20 10:00 Temperature 98 F Pulse Rate 84 92 72 Respiratory Rate 12 Blood Pressure 134/83 Pulse Oximetry 92 07/17/20 12:00 Temperature 98.2 F Pulse Rate 69 Respiratory Rate 22 H Blood Pressure 141/80 H Pulse Oximetry 96 Intake/Output Intake/Output: Intake & Output 07/14/20 07/15/20 07/16/20 07/17/20 23:59 23:59 23:59 23:59 Intake Total 2190 1080 Output Total 1200 1200 Balance 990 -120 Meds/Results Medications: Active Medications Generic Name Dose Route Start Last Admin Trade Name Freq PRN Reason Stop Dose Admin Acetaminophen 1,000 mg 07/15/20 21:36 Acetaminophen 500 Mg Tablet PO Q6H PRN Mild Pain (1-3) or Fever Albuterol 2 puff 07/16/20 02:00 07/17/20 09:02 Albutero
[2020-07-17] MEDS: PANTOPRAZOLE 40 MG TABLET PO (20:53)
--- NOTE | 2020-07-17 21:58 | PC.NURSE ---
This patient, Primo Neff, was transferred to [ rm [id number]] on 07/17/20 at 2145. Personal belongings sent with patient. Report given to [Noy Marino ]. Appropriate documentation sent with patient.
--- NOTE | 2020-07-17 22:05 | PC.NURSE ---
This patient, Primo Neff, was received from IMU on 07/18/20 at 2205. Patient/family oriented to unit policies and routines
[2020-07-18] VITALS (10 sets, daily range): BP systolic 103–134; BP diastolic 46–83; PULSE 63–88; RESP 16–20; TEMP 36.1–36.4; O2SAT 90–97
[2020-07-18] MEDS: ALBUTEROL SULFATE (*SP) AEROSOL 1 PUFF 2 PUFF INHALATION ×4 (02:42→20:25)
[2020-07-18 06:28] LABS: Basophils Percent Auto 0.2 % (0.2-1.2); Hematocrit 40.7 % (42.0-52.0); Hemoglobin 13.5 g/dL (14.0-18.0); Immature Granulocyte Percent A 0.9 % (0-0.5); Lymphocytes Absolute Auto 2.07 K/mm3 (0.9-3.2); Lymphocytes Percent Auto 18.9 % (18.3-44.2); Mean Corpuscular HGB Conc 33.2 g/dl (32-36); Mean Corpuscular Hemoglobin 30.1 pg (26-34); Mean Corpuscular Volume 90.6 fl (80-100); Mean Platelet Volume 9.3 fl (7.4-10.4); Monocytes Absolute Auto 0.9 K/mm3 (0.1-0.6); Monocytes Percent Auto 7.8 % (2.6-8.5); Neutrophils Absolute Auto 7.9 K/mm3 (1.3-6.7); Neutrophils Percent Auto 72.2 % (45.5-73.1); Platelet Count Result 494 k/mm3 (150-375); Red Blood Count 4.49 M/mm3 (4.6-6.20); Red Cell Distribution Width 13.1 % (11.5-14.5)
[2020-07-18 06:42] LABS: Alanine Aminotransferase 297 U/L (4-50); Albumin Level 3.3 g/dL (3.5-5.1); Alkaline Phosphatase 92 U/L (38-126); Anion Gap 7 mmol/L (8-16); Aspartate Amino Transferase 150 U/L (17-59); Bilirubin,Total 0.6 mg/dL (0.2-1.3); Blood Urea Nitrogen 14 mg/dL (9-20); Calcium 8.3 mg/dL (8.4-10.2); Carbon Dioxide 29 mmol/L (22-30); Chloride 102 mmol/L (98-107); Estimated CRCL calculation 146 ml/min; Estimated Glomerular Filt Rate > 60; Glucose 132 mg/dL (75-110); Potassium 4.1 mmol/L (3.4-5.0); Sodium 138 mmol/L (137-145)
[2020-07-18] MEDS: DEXAMETHASONE SOD PHOS INJ 4 MG/ML VIAL 6 MG IV PUSH (08:39)
[2020-07-18] MEDS: ENOXAPARIN 40 MG/0.4 ML SYRINGE SUB-Q ×2 (08:40→20:25)
--- NOTE | 2020-07-18 15:05 | PCRCNOTE ---
HOME O2 EVAL DONE, PT DOES NOT REQUIRE O2 AT THIS TIME
--- NOTE | 2020-07-18 16:13 | PM.IMPN ---
Progress Note: A&P Assessment and Plan (1) Acute hypoxemic respiratory failure: Code(s): J96.01 - Acute respiratory failure with hypoxia Status: Acute Assessment and Plan: ABG showing pH 7.47/31/[address] showing ground-glass opacities in all lobes. Currently down to 1L and no requirement by home O2 evaluation. Continue to monitor. (2) Pneumonia due to 2019 novel coronavirus: Code(s): U07.1 - COVID-19; J12.89 - Other viral pneumonia Status: Acute Assessment and Plan: Patient tested positive for COVID on 07/09/20 and had been symptomatic for about 3 days prior to testing. He was placed in isolation. Remdesivir and Decadron were started. The patient down to 1 Liter but no requiremetn per home O2 evaluation. Ferritin still >2000 and LDH higher at 1792 yesterday. ALT higher today at 297 but AST better; continue to hold Remdesivir. Continue inhalers and prn cough medicine. Continue to monitor his liver enzymes daily. Repeat LDH, ferritin and CRP (3) Elevated LFTs: Code(s): R79.89 - Other specified abnormal findings of blood chemistry Status: Acute Assessment and Plan: AST and ALT trending down 07/16 but worse yesterday for unclear reasons. Possibly related to the Remdesivir which was held. AST better but ALT worse today but ALT sometimes lag. Continue to hold Remdesivir. (4) GERD (gastroesophageal reflux disease): Code(s): K21.9 - Gastro-esophageal reflux disease without esophagitis Status: Acute Assessment and Plan: GERD symptoms were inhibiting his ability to sleep. Protonix at bedtime added. (5) History of tobacco use: Code(s): Z87.891 - Personal history of nicotine dependence Status: Acute Assessment and Plan: Patient has history of tobacco use and quit last month. He was congratulated on quitting. (6) DVT prophylaxis: Code(s): Z29.9 - Encounter for prophylactic measures, unspecified Status: Acute Assessment and Plan: Lovenox Subjective Date/time seen: 07/18/20 16:13 Interval history: Date of service 07/18 39yo male with history of tobacco use here for respiratory failure from COVID. Eating okay. Walking to the [place]. SOB last night but related to a nightmare and sx resolved quickly. Cough productive of yellow sputum but much better overall. Exam Narrative: Exam Narrative: AF 97.0 134/83 85 16 94% 1L Gen - NARD Chest - few scattered rhonchi, nml RR CV - RRR S1/S2 Abd - Soft, NT/ND, Positive BS Ext - No pedal edema Psych - nml mood and affect Skin - Warm and dry Objective Data Vital Signs Vital Signs: Vital Signs - 24 hr 07/17/20 18:00 07/17/20 20:00 07/17/20 22:30 Temperature 98.1 F Pulse Rate 81 71 63 Respiratory Rate 14 20 Blood Pressure 140/55 L Pulse Oximetry 94 94 07/18/20 00:00 07/18/20 02:00 07/18/20 04:00 Temperature 97.6 F 97.1 F L Pulse Rate 63 74 Respiratory Rate 20 20 Blood Pressure 110/46 L 114/54 L Pulse Oximetry 96 94 97 07/18/20 08:00 07/18/20 12:00 07/18/20 13:15 Temperature 96.9 F L 97.0 F L Pulse Rate 65 85 Respiratory Rate 18 16 Blood Pressure 122/64 134/83 Pulse Oximetry 94 95 92 07/18/20 13:20 07/18/20 13:45 Temperature Pulse Rate Respiratory Rate Blood Pressure Pulse Oximetry 90 94 Intake/Output Intake/Output: Intake & Output 07/15/20 07/16/20 07/17/20 07/18/20 23:59 23:59 23:59 23:59 Intake Total 2190 1420 930 Output Total 1200 1200 300 Balance 990 220 630 Meds/Results Medications: Active Medications Generic Name Dose Route Start Last Admin Trade Name Freq PRN Reason Stop Dose Admin Albuterol 2 puff 07/16/20 02:00 07/18/20 14:47 Albuterol Sulfate (*Sp) Aerosol 1 Puff INHALATION 2 puff Q6HRT JOSIAS Administration Dexamethasone Sodium Phosphate 6 mg 07/16/20 09:00 07/18/20 08:39 Dexamethasone Sod Phos Inj 4 Mg/Ml Vial IV PUSH 07/25/20 09:01 6 mg
[2020-07-18] MEDS: PANTOPRAZOLE 40 MG TABLET PO (20:25)
[2020-07-19] VITALS: BP 128/71; PULSE 66; RESP 18; TEMP 36.5; O2SAT 94
[2020-07-19] MEDS: ALBUTEROL SULFATE (*SP) AEROSOL 1 PUFF 2 PUFF INHALATION ×2 (01:48→08:35)
[2020-07-19 04:00] VITALS: BP 120/66; PULSE 67; RESP 18; TEMP 36.5; O2SAT 93
[2020-07-19 07:36] LABS: Alanine Aminotransferase 310 U/L (4-50); Albumin Level 3.2 g/dL (3.5-5.1); Alkaline Phosphatase 88 U/L (38-126); Anion Gap 7 mmol/L (8-16); Aspartate Amino Transferase 99 U/L (17-59); Bilirubin,Total 0.4 mg/dL (0.2-1.3); Blood Urea Nitrogen 14 mg/dL (9-20); CRP 2.4 mg/dL (<1.0); Calcium 8.4 mg/dL (8.4-10.2); Carbon Dioxide 27 mmol/L (22-30); Chloride 104 mmol/L (98-107); Estimated CRCL calculation 168 ml/min; Estimated Glomerular Filt Rate > 60; Glucose 126 mg/dL (75-110); Lactate Dehydrogenase 835 U/L (313-618); Sodium 138 mmol/L (137-145)
[2020-07-19 08:00] VITALS: BP 131/59; PULSE 66; PULSE 96; RESP 18; TEMP 36.3; O2SAT 97
[2020-07-19] MEDS: DEXAMETHASONE SOD PHOS INJ 4 MG/ML VIAL 6 MG IV PUSH (08:30)
[2020-07-19] MEDS: ENOXAPARIN 40 MG/0.4 ML SYRINGE SUB-Q (08:31)
--- NOTE | 2020-07-19 09:50 | PM.DS ---
DS: Admitting Diagnosis Admitting Diagnosis Admitting Diagnosis: Acute Resp Failure DS: Discharge Diagnosis Discharge Diagnosis (1) Acute hypoxemic respiratory failure: Code(s): J96.01 - Acute respiratory failure with hypoxia Status: Acute Assessment and Plan: ABG showing pH 7.47/31/[address] showing ground-glass opacities in all lobes. Able to be weaned down on O2. Home O2 evaluation showing no requirements for home O2. (2) Pneumonia due to 2019 novel coronavirus: Code(s): U07.1 - COVID-19; J12.89 - Other viral pneumonia Status: Acute Assessment and Plan: Patient tested positive for COVID on 07/09/20 and had been symptomatic for about 3 days prior to testing. He was placed in isolation. Remdesivir and Decadron were started. The patient weaned off O2. Ferritin, LDH and CRP trended and all markers trending down. CXR today showing improvement. ALT increased to 310 so we held Remdesivir. We continued inhalers and prn cough medicine. (3) Elevated LFTs: Code(s): R79.89 - Other specified abnormal findings of blood chemistry Status: Acute Assessment and Plan: AST and ALT trending down 07/16 but worse on 07/17 related to COVID +/- Remdesivir; Remdesivir was held. AST better at 99 but ALT up to 310. Repeat LFTs as outpatieint. . (4) GERD (gastroesophageal reflux disease): Code(s): K21.9 - Gastro-esophageal reflux disease without esophagitis Status: Acute Assessment and Plan: GERD symptoms were inhibiting his ability to sleep. Protonix started at bedtime. (5) History of tobacco use: Code(s): Z87.891 - Personal history of nicotine dependence Status: Acute Assessment and Plan: Patient has history of tobacco use and quit last month. He was congratulated on quitting. DS: Summary Hospital Course Reason for hospitalization: 39yo male with history of tobacco use here for respiratory failure from COVID. Please see H&P for details Hospital Course: Please see above for details of hospital course Status at Discharge Cognitive/behavioral status at discharge: PATIENT IS STABLE FOR DISCHARGE Time Spent with Patient Time attestation: Total time spent providing and/or coordinating discharge services:35 minutes Time spent: Greater than 30 minutes Exam Narrative: Exam Narrative: AF 97.3 131/59 66 18 97% ra Gen - NARD Chest - CTA bilaterally CV - RRR S1/S2 Abd - Soft, NT/ND, Positive BS Ext - No pedal edema Psych - nml mood and affect Skin - Warm and dry DS: Data Data Completed and Pending Labs on day of discharge: Labs from last 24 hours 07/19/20 07/19/20 07/19/20 06:53 06:53 06:53 Sodium 138 Potassium 4.0 Chloride 104 Carbon Dioxide 27 Anion Gap 7 L BUN 14 Creatinine 0.60 L Estim Creat Clear Calc 168 Estimated GFR > 60 Glucose 126 H Calcium 8.4 Ferritin 1450.00 H Total Bilirubin 0.4 AST 99 H ALT 310 H Alkaline Phosphatase 88 Lactate Dehydrogenase 835 H C-Reactive Protein 2.4 H Total Protein 7.0 Albumin 3.2 L Hepatitis A IgM Ab Pending Hep Bs Antigen Pending Hep B Core IgM Ab Pending Hepatitis C Ab Screen Pending Discharge Plan Discharge Attending physician on discharge: Bubba Ball Discharging Clinician: Bubba Ball Anticipated Discharge Date/Time: 07/19/20 09:57 Patient Disposition: Home, Self-Care Activity: as tolerated Diet: regular Discharge Instructions: Please continue to not smoke Please avoid large gathering, wear face coverings in public and practice social distance. Continue quarantine through 07/27/20. Please complete your steroid course even if you are starting to feel well. Contact your doctor or come to the Emergency Room if you have shortness of breath or other worrisome symptoms. Follow-up with your doctor in 1-2 weeks. Please call for appointment. Patient In
[2020-07-19 11:05] LABS: Hepatitis B Surface Antigen Negative (Negative)
[2020-07-19 11:10] LABS: HAV RESULT Negative (Negative); Hepatitis B Core IgM Result Negative (Negative)
[2020-07-19 11:22] LABS: Hepatitis C Virus Antibody Negative (Negative)
[2020-07-19 12:00] VITALS: BP 131/59; PULSE 66; RESP 18; TEMP 36.3; O2SAT 97
== END 2020-07-19 13:15 | disposition home or self-care (01) | DRG 177 ==
LOC: ANHED 15:41 → ANHIMU 20:56 → ANH3MEDSUR 07-17 22:12
PROVIDERS: Nurse Practitioner; Admitting Provider Internal Medicine; Emergency Provider Emergency Medicine; Visit Provider Internal Medicine
DX: U07.1 COVID-19 (principal); J96.01 Acute respiratory failure with hypoxia; J12.89 Other viral pneumonia; K21.9 Gastro-esophageal reflux disease without esophagitis; Z87.891 Personal history of nicotine dependence
CPT/HCPCS: 36415; 36600; 71045; 71250; 80048; 80053; 80074; 82375; 82728; 82805; 83050; 83615; 83735; 84460; 85025; 86140; 93005; 94618; 94640; 99291; A9270; J1100; J1650

== ENCOUNTER 2023-10-16 11:40 | Emergency (ER) | payer BC, SELFPAY ==
[2023-10-16 11:55] VITALS: BP 139/79; PULSE 87; RESP 16; TEMP 37.3; O2SAT 100
--- NOTE | 2023-10-16 11:56 | ED.URI ---
HPI - URI/Sore Throat General Chief Complaint: Upper Respiratory Infection Stated Complaint: cough,fever,cold,chills Time Seen by Provider: 10/16/23 12:18 Source: patient and RN notes reviewed Mode of arrival: ambulatory Limitations: no limitations History of Present Illness HPI Narrative: 43-year-old male presents concern for fever, body aches, chills, cough, headache. Reports symptoms started on Tuesday evening. Reports he has been taking cold flu medicine without relief. MD elicited complaint: fever and cough Related Data Home Medications Medication Instructions Recorded Confirmed albuterol sulfate 90 mcg/actuation 1 inh inhalation Q4H PRN Wheezing 07/15/20 07/16/20 breath activated powder inhaler (ProAir RespiClick) Allergies Allergy/AdvReac Type Severity Reaction Status Date / Time No Known Allergies Allergy Unknown Verified 07/15/20 22:07 Review of Systems Review of Systems: CONSTITUTIONAL: Reports malaise, chills, sweats, fever. EYES: Denies visual changes, redness, or discharge. ENT: Reports rhinorrhea, congestion, and sore throat. CARDIOVASCULAR: Denies chest pain, palpitations, or edema. RESPIRATORY: Reports cough. Denies dyspnea. GASTROINTESTINAL: Denies abdominal pain, nausea, vomiting, diarrhea SKIN: Denies rash or itching. MUSCULOSKELETAL: Reports myalgia. NEUROLOGIC: Reports headache. All systems reviewed & are unremarkable except as noted in HPI and below PMFSH Past Medical History Medical History (Updated 10/16/23 @ 12:23 by Ana Church NP) No active medical problems Surgical History Surgical History (Updated 07/15/20 @ 22:17 by Yenny Ba NP) No pertinent past surgical history Family History Family History Father Diabetes mellitus COVID-19 He due to COVID-19 a day to 59 Sibling COVID-19 at the age of 35 due to COVID-19 and she had obesity. Social History Social History (Updated 07/15/20 @ 22:19 by Yenny Ba NP) Social History: The patient is and has 4 children. The patient smoked until just right before the end of last month. He said he did smoke all the time he just socially smoked in socially drink. No marijuana or illicit drugs. 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 Patient does needs his to be durable power finance attorney for healthcare. The patient desires to be a full code. Smoking status: Current some day smoker Tobacco type: cigarettes Second hand tobacco smoke exposure: No Alcohol intake: current Drinks per week: 10 Substance use: never Gender identity (if verbalized by the patient): Male Spiritual care concerns: No Comments At time of signature, agree with nursing past medical, surgical, social and family history. There is no relevant family history pertinent to the presenting complaint Exam Narrative: GENERAL: Well-appearing, well-nourished, and in no acute distress. HEAD: Normocephalic EYES: PERRLA, conjunctivae clear ENT: Nares clear, clear discharge. Mucous membranes moist. TM pearly smith with sharp light reflex bilaterally; no tragal tenderness. Oropharynx not erythematous without lesions. Tonsils not enlarged and without exudate, no drooling, no hoarseness, no trismus, uvula midline. NECK: Supple. No lymphadenopathy CHEST: Clear to auscultation, breath sounds equal. No wheezing, rhonchi, rales, or stridor. No respiratory distress, speaks in full sentences. HEART: Regular rate and rhythm. No murmur heard. SKIN: Warm, dry, no rash. NEURO: Alert and oriented x3. PSYCH: Normal mood and affect Course Course Emergency Course: Patient is aware of diagnosis, understands and agrees to treatment plan. Anticipatory guidance given. Patient agrees to follow-up as directed and is aware of reasons to seek care at the emergency department. Portions of this record may have been created with voice r
== END 2023-10-16 12:26 | disposition home or self-care (01) ==
PROVIDERS: Emergency Provider Nurse Practitioner
DX: J10.1 Influenza due to other identified influenza virus with other respiratory manifestations (principal); Z20.822 Contact with and (suspected) exposure to COVID-19; F17.210 Nicotine dependence, cigarettes, uncomplicated
CPT/HCPCS: 87426; 87804; 99213; G0463